=== PATIENT | male | born 1945 | race Caucasian/White ===

== ENCOUNTER 2020-11-24 10:32 | Outpatient (CLI) | payer MEDICARE, BC ==
[~2020-11-24] VITALS: Ht 182.2 cm; Wt 93.0 kg
[2020-11-24 11:07] LABS: TOTAL HEMOGLOBIN 18.8 G/dl (14.0-18.0)
[2020-11-24] MEDS ORDERED: albuterol 2.5 MG/3 ML nebule NEB PRN (11:25)
== END 2020-11-24 23:59 | disposition home or self-care (01) ==
LOC: RT 10:32
PROVIDERS: ATTEND Internal Medicine Pulmonary Disease
DX: R94.2 Abnormal results of pulmonary function studies (principal); J45.998 Other asthma
CPT/HCPCS: 85018; 94060; 94727; 94729; 94760

== ENCOUNTER 2022-08-09 08:16 | Day surgery (SDC) | payer MEDICARE, BC ==
[~2022-08-09] VITALS: Ht 180.3 cm; Wt 82.7 kg
[2022-08-09 08:30] VITALS: BP 118/74
[2022-08-09] MEDS ORDERED: ROSU5TAB12 PO (08:33)
[2022-08-09] MEDS ORDERED: LEVO88TA2 PO (08:33)
[2022-08-09] MEDS ORDERED: PANT40TA54 PO (08:33)
[2022-08-09] MEDS ORDERED: FLUT1DIS10 (08:33)
[2022-08-09] MEDS ORDERED: MIDAZolam 1 MG/ML 5ML VIAL ONE (08:37)
[2022-08-09] MEDS ORDERED: fentaNYL/PF 50MCG/1 ML 2ML syringe ONE (08:37)
[2022-08-09] MEDS ORDERED: LIDOcaine Viscous 15ml cup ONE (08:38)
[2022-08-09 09:10] VITALS: BP 114/73
[2022-08-09 09:20] VITALS: BP 109/75
[2022-08-09 09:30] VITALS: BP 117/74
[2022-08-09 09:40] VITALS: BP 114/71
== END 2022-08-09 09:45 | disposition home or self-care (01) ==
LOC: GI LAB 08:16
PROVIDERS: ATTEND Internal Medicine Gastroenterology
DX: K22.2 Esophageal obstruction (principal); K44.9 Diaphragmatic hernia without obstruction or gangrene; K22.89 Other specified disease of esophagus; K21.9 Gastro-esophageal reflux disease without esophagitis; K29.50 Unspecified chronic gastritis without bleeding; Z79.899 Other long term (current) drug therapy; Z98.890 Other specified postprocedural states
CPT/HCPCS: 43239; 43450; G0500; J2250; J3010; J7030; Z7512; 88305; 88313; 99152; A4620

== ENCOUNTER 2024-07-03 09:49 | Outpatient (CLI) | payer MEDICARE, BC ==
[~2024-07-03 09:49] MED LIST: FLUT1DIS10; LEVO88TA2 PO; PANT40TA54 PO; ROSU5TAB43 PO
[2024-07-03 10:43] LABS: ALBUMIN 3.5 G/DL (3.4-5.0); ANION GAP 9 (8-16); BLOOD UREA NITROGEN 17 MG/DL (7-18); BUN/CREATININE RATIO 16.3 (10.0-20.0); CALCIUM 8.7 MG/DL (8.5-10.1); CHLORIDE 106 MMOL/L (99-107); CREATININE 1.04 MG/DL (0.60-1.10); GLUCOSE 135 MG/DL (70-104); POTASSIUM 4.4 MMOL/L (3.5-5.1); SODIUM 140 MMOL/L (135-145); TOTAL CARBON DIOXIDE 25.3 MMOL/L (24-32); eGFR 69 ML/MIN
[2024-07-03] MEDS ORDERED: iohexol 350MG/ML 100ml bottle IV ONE (11:19)
== END 2024-07-03 23:59 | disposition home or self-care (01) ==
LOC: RAD 09:49
PROVIDERS: ATTEND Student in an Organized Health Care Education/Training Program
DX: N28.1 Cyst of kidney, acquired (principal); K57.30 Diverticulosis of large intestine without perforation or abscess without bleeding; N40.0 Benign prostatic hyperplasia without lower urinary tract symptoms; I71.20 Thoracic aortic aneurysm, without rupture, unspecified; E78.5 Hyperlipidemia, unspecified
CPT/HCPCS: 36415; 71275; 74174; 80048; Q9967